=== PATIENT | female | born 2000 | race Caucasian/White ===

== ENCOUNTER 2023-12-09 13:40 | Outpatient (CLI) | payer OTHER, SELFPAY ==
--- NOTE | 2023-12-09 14:00 | US_ITS ---
Patient: BRUNO DURAND Facility:?[facility] RIS Patient ID:?[id number] Site Patient ID:?[id number]. Site :?1998 Study:?-ST Neck -12/09/2023 2:27:58 PM Ordering Physician:Linh Miller Final Report: Indication: Generalized enlarged lymph nodes for 6-8 weeks. History of sore throat approximally 8 weeks ago with swelling of bilateral neck lymph nodes. Right lymph nodes have not improved. The patient also complains of current allergies versus cold. Technique: Focused sonographic evaluation of the neck soft tissues was performed bilaterally. Comparison: None available. Findings: Corresponding with the location of palpable abnormality, there is a borderline enlarged right level 1 lymph node measuring 2.3 x 0.9 x 1.1 cm. There appears to be preservation of a normal fatty hilum and hilar blood flow on color Doppler. There is a top-normal size of an additional right level 1 lymph node measuring 2.2 x 0.8 x 1.2 cm. This lymph node also appears to have a normal fatty hilum with hilar blood flow on color Doppler. Corresponding with a palpable abnormality on the left, there is a prominent left level 1 lymph node measuring 1.7 x 0.6 x 0.6 cm. This lymph node has a normal fatty hilum and preserved hilar blood flow. No internal cystic regions. No abnormal calcifications. Impression: Prominent bilateral level 1 cervical lymph nodes measuring less than 1 cm in short axis correspond with the patient`s palpable abnormality. These lymph nodes demonstrate preservation of normal fatty ginna and hilar blood flow suggesting reactive lymph nodes. Recommend continued clinical follow-up with repeat ultrasound as clinically indicated. Dictated by Yohana Mcfarlane MD @ 12/10/2023 1:31:39 PM Signed by:?Yohana Mcfarlane MD @12/10/2023 1:31:39 PM (Electronic Signature)
== END 2023-12-09 13:41 | disposition home or self-care (01) ==
LOC: US 13:42
PROVIDERS: Visit Provider Nurse Practitioner Family
DX: R59.1 Generalized enlarged lymph nodes (principal)
CPT/HCPCS: 76536